=== PATIENT | male | born 1940 | race Caucasian/White ===

== ENCOUNTER 2017-08-22 06:14 | Emergency (ER) | payer OTHER ==
[~2017-08-22] VITALS: Ht 170.2 cm; Wt 94.8 kg
--- NOTE | ~2017-08-22 | EKG ---
[facility] [place] [place] [address] ELECTROCARDIOGRAM REPORT Name: TRACIE PATEL DUGLAS Room #: DEP Sharmin#: [id number] Admission: 08/22/17 Attend Phys: Discharge: 08/22/17 Date of : 38 Report #: [id number] THIS REPORT FOR: //name// [facility] ED Test Date: 2017-08-22 Test Time: 07:04:36 Pat Name: TRACIE PATEL Department: Room: Gender: Human Resources Consultant: JJ : 1940 Requested By: Noni Marquez Order Number: [id number] MD: Joon Porras Measurements Intervals Danese Rate: 74 P: 0 MT: 39 QRS: 103 QRSD: 137 T: -82 QT: 492 QTc: 546 Interpretive Statements Ventricular-paced complexes No further rhythm analysis attempted due to paced rhythm Occasional intrinsic depolarizations No previous ECG available for comparison Electronically Signed On 08-22-2017 8:19:00 CAREER GUIDANCE COUNSELOR by Joon Porras [email or web address] <ELECTRONICALLY SIGNED> By: Joon Porras MD, [facility] 08/22/17 0819 07 3 Joon Porras MD, FACC /EPI
[~2017-08-22 06:14] MED LIST: ASPIRIN EC325 M1; BYSTOLIC20 MG; COUMADIN 5 MG TA5 M1; KLOR-CON 1010 MEQ PO; LASIX 40 MG TAB40 M1; POTASSIUM CHLO10 ME1; ZAROXOLYN 2.5M2.5 M1; ZESTRIL5 MG
[2017-08-22 06:58] LABS: ABSOLUTE NEUTROPHILS 3.8 thou/uL (1.4-8.2); BASOPHILS 0.8 % (0.0-2.0); EOSINOPHILS 3.9 % (0.0-3.0); HEMATOCRIT 44.7 % (42.0-52.0); HEMOGLOBIN 15.3 gm/dL (14.0-18.0); LYMPHOCYTES 37.4 % (24.0-44.0); MCH 31.8 pg (26.0-34.0); MCHC 34.2 g/dL (28.0-37.0); MONOCYTES 9.4 % (1.0-8.0); PLATELET COUNT 239 thou/uL (150-400); POLYS 48.5 % (36.0-66.0); RBC 4.81 mil/uL (4.50-6.00); RDW 15.7 % (10.5-14.5); WBC 7.8 thou/uL (4.0-11.0)
[2017-08-22 07:07] LABS: CALCIUM 8.9 mg/dL (8.5-10.1); CREATININE 1.2 mg/dL (0.7-1.3); POTASSIUM 3.5 mmol/L (3.5-5.1)
[2017-08-22] MEDS ORDERED: BYSTOLIC20 MG PO (07:24)
[2017-08-22] MEDS ORDERED: KLOR-CON 1010 MEQ PO (07:24)
[2017-08-22] MEDS ORDERED: LASIX 40 MG TAB40 M2 PO (07:25)
[2017-08-22] MEDS ORDERED: COUMADIN 5 MG TA5 M1 PO (07:25)
[2017-08-22] MEDS ORDERED: ASPIRIN325 PO (07:26)
[2017-08-22 08:06] VITALS: BP 105/56
== END 2017-08-22 08:07 | disposition home or self-care (01) ==
LOC: ER 06:14
PROVIDERS: Emergency Medicine
DX: R00.2 Palpitations (principal); E03.9 Hypothyroidism, unspecified; F17.200 Nicotine dependence, unspecified, uncomplicated; Z88.8 Allergy status to other drugs, medicaments and biological substances